=== PATIENT | male | born 1955 | race Two or more races ===

== ENCOUNTER 2017-11-02 09:02 | Inpatient (IN) | payer OTHER ==
[2017-10-28 17:56] LABS: BASOPHILS % (AUTO) 0.6 % (0.0-2.0); HEMATOCRIT 47.4 % (42.0-52.0); HEMOGLOBIN 16.4 G/DL (14.2-18.0); MEAN CORPUSCULAR VOLUME 94 FL (80-99); MONOCYTES % (AUTO) 7.7 % (1.0-10.0); NEUTROPHILS % (AUTO) 60.7 % (45.0-75.0); PLATELET COUNT 231 K/UL (150-450); RED BLOOD COUNT 5.03 M/UL (4.70-6.10); RED CELL DISTRIBUTION WIDTH 11.6 % (11.6-14.8); WHITE BLOOD COUNT 9.2 K/UL (4.8-10.8)
[2017-10-28 18:17] LABS: ALANINE AMINOTRANSFERASE 34 U/L (12-78); ALBUMIN 3.9 G/DL (3.4-5.0); ALKALINE PHOSPHATASE 74 U/L (46-116); ANION GAP 12 mmol/L (5-15); APPEARANCE,URINE CLEAR; ASPARTATE AMINO TRANSFERASE 23 U/L (15-37); BILIRUBIN, URINE NEGATIVE (NEGATIVE); BILIRUBIN,TOTAL 0.6 MG/DL (0.2-1.0); BLOOD UREA NITROGEN 11 mg/dL (7-18); CALCIUM 9.5 MG/DL (8.5-10.1); CARBON DIOXIDE 28 MMOL/L (21-32); CHLORIDE 103 MMOL/L (98-107); CREATININE 0.7 MG/DL (0.55-1.30); GLUCOSE, URINE (UA) NEGATIVE (NEGATIVE); KETONES,URINE 3+ (NEGATIVE); LEUKOCYTE ESTERASE ,URINE NEGATIVE (NEGATIVE); NITRITE,URINE NEGATIVE (NEGATIVE); PH,URINE 6 (4.5-8.0); PHOSPHORUS 3.4 MG/DL (2.5-4.9); POTASSIUM 3.3 MMOL/L (3.5-5.1); PROTEIN,URINE NEGATIVE (NEGATIVE); SODIUM 143 MMOL/L (136-145); UROBILINOGEN,URINE NORMAL MG/DL (0.0-1.0)
[2017-10-28 18:18] LABS: COLOR,URINE YELLOW
--- NOTE | 2017-10-29 14:17 | Diagnostic Imaging Report ---
Indication: Cough Comparison: None 2 views of the chest obtained. Mid and lower thoracic upper lumbar spinal stabilization rods demonstrated. Lungs are clear. Heart size is normal. Bones are osteopenic. IMPRESSION: No acute disease
[~2017-11-02] VITALS: Ht 160 cm; Wt 77.1 kg
[2017-11-02] VITALS (14 sets, daily range): BP systolic 110–142; BP diastolic 62–85
[~2017-11-02 09:02] MED LIST: NKM; ceFAZolin sod 2 GM in D5W 110 ML IVPB ONE
[2017-11-02] MEDS ORDERED: CODEINE PO (09:55)
[2017-11-02] MEDS ORDERED: OMEPRAZOLE20 M2 ORAL (09:55)
[2017-11-02] MEDS ORDERED: ALPRAZOLAM1 MG ORAL (09:55)
[2017-11-02] MEDS ORDERED: IBUPROFEN PO (09:55)
[2017-11-02] MEDS ORDERED: LUNESTA1 MG ORAL (09:55)
[2017-11-02] MEDS ORDERED: ACETAMINOPHEN-1 EAC2 ORAL (09:56)
--- NOTE | 2017-11-02 11:05 | Pre-Procedure Note/Attestation ---
Pre-Procedure Note/Attestation Complete Prior to Procedure Procedure Narrative: [id number] laminoplasty, c2 and c7 partial laminectomy Indications for Procedure Pre-Operative Diagnosis: cervical stenosis with myelopathy Attestation I attest that I discussed the nature of the procedure; its benefits; risks and complications; and alternatives (and the risks and benefits of such alternatives ), prior to the procedure, with the patient (or the patient's legal customer development representative). I attest that, if there was a reasonable possibility of needing a blood transfusion, the patient (or the patient's legal customer development representative) was given the [facility] standardized written summary, pursuant to the Cade Andrew Blood Safety Act ([place] Health and Safety Code # 1645, as amended). I attest that I re-evaluated the patient just prior to the surgery and that there has been no change in the patient's H&P, except as documented below: CISCO HOWELL Nov 02, 2017 11:05
--- NOTE | 2017-11-02 11:06 | Brief Operative Note ---
Immediate Post Operative Note Operative Note Pre-op Diagnosis: cervical stenosis with myelopathy Procedure: c3-6 laminoplasty, C2 and C7 partial laminectomy laminoforaminotomy Right C34, 45, 56, and B c67 Post-op Diagnosis: same as pre-op Findings: consistent w/pre-op dx studies Surgeon: america Wash Barrel Leader: stephen SEAY Anesthesiologist: neyda Anesthesia: general Specimen: none Complications: none Condition: stable Fluids: 1400 lr Estimated Blood Loss: volume - 100 Drains: hemovac Implant(s) used?: Yes - aesculap laminoplasty 8mm x 2 and 6 mm x 2 CISCO HOWELL Nov 02, 2017 11:06
[2017-11-02] MEDS ORDERED: Bacitracin Oint 15gm Tube TOPIC ONE (11:29)
[2017-11-02] MEDS ORDERED: Thrombin 5000 units TOPIC ONE ×2 (11:29→13:51)
[2017-11-02] MEDS ORDERED: Lidocaine 1% 10mg/ml/Epi 0.005mg/ml 30ml vial INJ ONE (11:30)
[2017-11-02] MEDS ORDERED: Thrombin 5000 units spray kit TOPIC ONE ×2 (11:30→13:52)
[2017-11-02] MEDS ORDERED: Gelfoam Absorbable 1gm powder pkt TOPIC ONE ×2 (11:30→13:52)
[2017-11-02] MEDS ORDERED: Bacitracin 50000 Units Vial ONE (11:30)
[2017-11-02] MEDS ORDERED: Vancomycin 1gm inj IVPB ONE (11:30)
[2017-11-02] MEDS ORDERED: Sterile Water Irrig 1000ml IRRIG ONE (12:00)
[2017-11-02] MEDS ORDERED: Neostigmine 1mg/ml 10ml Inj ONE (12:00)
[2017-11-02] MEDS ORDERED: Glycopyrrolate 0.2mg/ml 1ml Vial ONE (12:00)
[2017-11-02] MEDS ORDERED: Propofol 200mg/20ml IV ONE (12:00)
[2017-11-02] MEDS ORDERED: Zemuron 50mg/5ml Inj IV ONE (12:00)
[2017-11-02] MEDS ORDERED: Succinylcholine 20mg/ml 10ml vial ONE (12:00)
[2017-11-02] MEDS ORDERED: Midazolam 2mg/2ml Inj ONE ×2 (12:00)
[2017-11-02] MEDS ORDERED: LR 1000ml ONE (12:00)
[2017-11-02] MEDS ORDERED: Propofol 1,000mg/ 100ml btl IV ONE (12:00)
[2017-11-02] MEDS ORDERED: Ketorolac 30mg Inj ONE (12:00)
[2017-11-02] MEDS ORDERED: NS Irrig 1000ml ONE (12:00)
[2017-11-02] MEDS ORDERED: Morphine Sulfate 10mg/ml Inj ONE (12:00)
[2017-11-02] MEDS ORDERED: fentaNYL 100 mcg/2 mL IV ONE (12:00)
[2017-11-02] MEDS ORDERED: LR 1000ml 1,000 ML IVLG SCH (13:49)
--- NOTE | 2017-11-02 13:49 | Anethesia Preoperative Eval ---
Anesthesia Pre-op PMH/ROS General Date of Evaluation: Nov 02, 2017 Time of Evaluation: 12:02 Anesthesiologist: Riri ASA Score: ASA 2 Mallampati Score Class I : Soft palate, uvula, fauces, pillars visible Class II: Soft palate, uvula, fauces visible Class III: Soft palate, base of uvula visible Class IV: Only hard plate visible Mallampati Classification: Class II Surgeon: Nohelia Diagnosis: Cervical radiculopathy Surgical Procedure: C3 to C6 laminotomy with decompression Anesthesia History: none Family History: no anesthesia problems Allergies: Coded Allergies: No Known Allergies (Unverified , 10/29/17) Past Medical History Cardiovascular: Denies: HTN, CAD, [place], valve dz, arrhythmia, other Pulmonary: Denies: asthma, COPD, WANDY, other Gastrointestinal/Genitourinary: Reports: GERD, Denies: CRI, ESRD, other Neurologic/Psychiatric: Reports: depression/anxiety, other - chronic pain Endocrine: Denies: DM, hypothyroidism, steroids, other HEENT: Denies: cataract (L), cataract (R), glaucoma, [place] (L), [place] (R), other Hematology/Immune: Denies: anemia, DVT, bleeding disorder, other Musculoskeletal/Integumentary: Denies: OA, RA, DJD, DDD, edema, other PMH Narrative: as above PSxH Narrative: hernia repair , Lumbar spine fusion Anesthesia Pre-op Phys. Exam Physician Exam Last Vital Signs Date Time Temp Pulse Resp B/P (MAP) Pulse Ox O2 Delivery O2 Flow Rate FiO2 11/02/17 09:40 97.8 62 18 142/73 99 Room Air Constitutional: NAD Neurologic: CN 2-12 intact Cardiovascular: RRR, no M/R/G Respiratory: CTA Gastrointestinal: S/NT/ND Airway Exam Mallampati Score: Class II MO: limited Neck: stiff ROM: limited Teeth: missing Dentures: no upper, no lower Anesthesia Pre-op A/P Labs see chart Studies Pre-op Studies: EKG - NSR, CXR - WNL Risk Assessment & Plan Assessment: ASA 2 Plan: GA with ett prone position head in pings, neuromonitoring Status Change Before Surgery: No Pre-Antibiotics Drug: Ancef 2 gr. Given Within 1 Hr of Incision: Yes Time Given: 12:52 RAYMOND ALVARADO M.D. Nov 02, 2017 13:49
[2017-11-02] MEDS ORDERED: Midazolam 2mg/2ml Inj IVP PRN (14:00)
[2017-11-02] MEDS ORDERED: Hydromorphone 0.5mg/0.5ml inj IVP PRN (14:00)
[2017-11-02] MEDS ORDERED: Meperidine 50mg/ml Inj(FOR RIGORS ONLY) IV PRN (14:00)
[2017-11-02] MEDS ORDERED: DiphenhydrAMINE 50mg/ml Inj IVP PRN (14:00)
[2017-11-02] MEDS ORDERED: Ketorolac 30mg Inj IV PRN (14:00)
[2017-11-02] MEDS ORDERED: Bacitracin 50000 Units Vial IRRIG ONE (15:41)
[2017-11-02] MEDS ORDERED: Norco 5mg/325mg tab ORAL PRN (16:15)
[2017-11-02] MEDS ORDERED: traMADol 50mg tab ORAL PRN (16:15)
[2017-11-02] MEDS ORDERED: Naloxone 0.4mg/ml Inj IVP PRN (16:15)
[2017-11-02] MEDS ORDERED: HYDROmorphone 1mg/ml Carpuject IVP PRN (16:15)
[2017-11-02] MEDS ORDERED: HYDROmorphone 1mg/ml Carpuject SUBQ PRN (16:15)
[2017-11-02] MEDS ORDERED: Milk of Magnesia 30ml Ud ORAL PRN (16:15)
--- NOTE | 2017-11-02 17:09 | Immediate Post-Op Evaluation ---
Immediate Post-Op Evalulation Immediate Post-Op Evalulation Procedure: C3 to C6 decompressive laminoplasty Date of Evaluation: Nov 02, 2017 Time of Evaluation: 17:08 IV Fluids: 1600 Blood Products: none Estimated Blood Loss: 100 Urinary Output: 200 Blood Pressure Systolic: 114 Blood Pressure Diastolic: 67 Pulse Rate: 94 Respiratory Rate: 20 O2 Sat by Pulse Oximetry: 99 Temperature (Fahrenheit): 97.8 Pain Score (1-10): 2 Nausea: No Vomiting: No Complications none Patient Status: reacts, patent, extubated, none Hydration Status: adequate RAYMOND ALVARADO M.D. Nov 02, 2017 17:09
[2017-11-02] MEDS ORDERED: ceFAZolin sod 1 GM in D5W 55 ML IV SCH (20:15)
[2017-11-02] MEDS: ceFAZolin 1gm/50ml Premix 50 ML IV SCH (21:10)
[2017-11-02] MEDS: D5 1/2NS 1,000 ML IV SCH (21:13)
[2017-11-02] MEDS: Docusate Sod/Senna tab ORAL SCH (22:00)
[2017-11-03] VITALS: BP 135/73
[2017-11-03] MEDS: HYDROcodone/Acetamin 7.5/325 tab ORAL PRN ×3 (00:49→20:24)
[2017-11-03 04:00] VITALS: BP 110/61
--- NOTE | 2017-11-03 04:15 | Operative Note - Dictated ---
DATE OF OPERATION: 11/02/2017 PREOPERATIVE DIAGNOSIS: Cervical spinal stenosis with myeloradiculopathy. POSTOPERATIVE DIAGNOSIS: Cervical spinal stenosis with myeloradiculopathy. PROCEDURE: 1. Inferior one-half laminectomy of C2 and superior one-half laminectomy of C7. 2. Right-sided laminal foraminotomy with decompression of nerve roots at C3-C4, C4-C5, C5-C6, as well as bilateral C6-C7. 3. Laminoplasty C3, C4, C5, C6 with placement of structural allograft. 4. Posterior segmental instrumentation C3, C4, C5, C6. 5. Use of fluoroscopy. 6. Neurodiagnostic monitoring. 7. Use of operating microscope. ESTIMATED BLOOD LOSS: 150 mL. FLUIDS GIVEN: 1400 mL of LR. SURGEON: Nelson Pozo M.D. FLOOR SANDER: Gregory Richardson PA-C. ANESTHESIOLOGIST: Sheldon Menezes M.D. ANESTHESIA TYPE: General endotracheal anesthesia. INDICATION: The patient is a very pleasant 62-year-old with severe spinal stenosis at multiple levels, C2 inferior half through C7 superior half with early signs of myelomalacia and cord edema. Surgical decompression was recommended. I did discuss with the patient the option of multilevel decompression and fusion versus multilevel decompression versus multilevel laminoplasty. He elected the laminoplasty solution. RISK NOTE: The patient was explained in detail the risks and benefits of surgery to include, but not be limited to those of bleeding, infection, damage to nerves, vessels, tendons, anesthetic risk, allergic reaction, aspiration and possibly , possible need for additional surgical decompression, primarily through an anterior approach was discussed. INTRAOPERATIVE FINDINGS: Hypermobile segment at C3. OPERATIVE PROCEDURE IN DETAIL: The patient was taken to the operative suite. After general endotracheal anesthesia was obtained, Díaz catheter was placed. Pryor pins were attached under sterile condition. The patient was then turned prone onto a radiolucent slider top table and head was firmly attached to the Pryor attachment. The knees were bent. Bony prominences were well padded. The neck was prepped and draped in usual sterile fashion. The patient received 10 mL of lidocaine with epinephrine. A midline incision was carried out from C2 through C7. Subperiosteal dissection was carried out. Care being taken to avoid injury to the facet joints. At this point, the left side was first visualized and hemilaminectomy of C2 was performed. This was performed using a high-speed drill, Microsect curette, and micro-Kerrison punches. Once satisfied with the decompression at C2, this was then performed along the superior one-half of C7. At this point, I did a partial osteotomy and scoring of the superficial portion of the lamina along the lateral gutter of C3, C4, C5, and C6. FloSeal was applied and this area was packed off. Please note that prior to performing any bony work, fluoroscopic confirmation of the levels was achieved. At this point, the attention was turned to the right side. We proceeded to perform similarly a hemilaminectomy on the right side at C2. This was done in an identical fashion as performed on the left. Then, I performed a laminal foraminotomy by removing inferior portion of C3 and superior portion of C4 as well as partial medial facetectomy. The neural foramen was free and noted to be patent. This was performed in an identical fashion using a high-speed drill, Microsect curette, and micro-Kerrison punches. This was then reproduced at the C4-C5 and C5-C6 level as well as C6-C7 level on the right side. Hemilaminectomy at C7 was also performed. Once satisfied with this, a complete osteotomy along the lateral edge using an AM-8 high-speed drill was performed. This was performed at C3, C4, C5, and C6. At this point, laminoplasty maneuver was performed on the C3 level, however, we could not mobilize this as the C2 and C3 ligamentum pressure interspinous ligament as well as the undersurface of the lamina of C2 had auto fused to C3. Therefore, I was forced to perform an osteotomy and removal of the spinous process and interspinous ligament at C2. Then with a high-speed drill, the pseudoarticulation between C2-C3 was drilled out and completion of the inferior one-half laminectomy of C2 was performed. This allowed us to open up the right side at C3 and an 8 mm bone graft was trialed and noted to be the right length. It was then attached to the Aescula laminoplasty set and a 4 millimeter screw was drilled into the lamina as well as a 6 millimeter screw was drilled into the lateral mass. This was then reproduced at the C4 level, C5 level, and subsequently C6 level. The bone graft at C3 was 8 millimeters, at C4 was 6 millimeters, at C5 was 8 millimeters, and at C6 was 6 millimeters. Please note that all screws were readily placed. The bottom two levels at C6 and C5 was concerning for overpenetration into the facet joint of the 6 millimeter lateral mass screw, which was subsequently removed. Excellent overall fixation, however, was palpated at all four levels. Once satisfied with fixation, all levels were tested and there was noted to be hypermobility at the C3 level. Copious irrigation was then performed. A 1 g of powdered vancomycin was placed deep to the fascia. Fascia was repaired using #1 Vicryl. Deep fascial drain was placed, subcutaneous closure using 2-0 Vicryl, and sterile Dermabond dressing was applied. The patient was then turned onto his back. Pryor pins were removed and at time of this dictation, he was awaiting extubation. Nelson Niesha Pozo DR: BENITA JOB#: [id number] CC:
[2017-11-03] MEDS: ceFAZolin 1gm/50ml Premix 50 ML IV SCH (04:23)
[2017-11-03] MEDS: D5 1/2NS 1,000 ML IV SCH ×3 (04:24→17:30)
[2017-11-03] MEDS ORDERED: Acetaminophen (Non formulary) 100 ML IV ONE (07:45)
[2017-11-03 08:07] VITALS: BP 114/59
[2017-11-03] MEDS: Docusate Sod/Senna tab ORAL SCH ×2 (08:38→17:32)
[2017-11-03 09:21] LABS: BASOPHILS % (AUTO) 0.4 % (0.0-2.0); EOSINOPHILS % (AUTO) 0.3 % (0.0-3.0); HEMATOCRIT 40.6 % (42.0-52.0); HEMOGLOBIN 13.7 G/DL (14.2-18.0); LYMPHOCYTES % (AUTO) 14.5 % (20.0-45.0); MEAN CORPUSCULAR VOLUME 95 FL (80-99); MONOCYTES % (AUTO) 7.9 % (1.0-10.0); NEUTROPHILS % (AUTO) 76.9 % (45.0-75.0); PLATELET COUNT 192 K/UL (150-450); RED BLOOD COUNT 4.28 M/UL (4.70-6.10); RED CELL DISTRIBUTION WIDTH 11.8 % (11.6-14.8); WHITE BLOOD COUNT 8.1 K/UL (4.8-10.8)
--- NOTE | 2017-11-03 09:27 | Orthopedic Spine Progress Note ---
Ortho Spine - Progress Note Subjective Symptoms: c/o post-op neck pain Objective Vital Signs: Last 24 Hour Vital Signs Date Time Temp Pulse Resp B/P (MAP) Pulse Ox O2 Delivery O2 Flow Rate FiO2 11/03/17 09:02 98.2 11/03/17 08:14 98.2 11/03/17 08:07 98.2 56 20 114/59 98 11/03/17 04:00 98.1 62 18 110/61 99 11/03/17 00:00 97.5 86 19 135/73 98 11/02/17 20:00 97.2 69 18 120/76 99 11/02/17 19:22 97.2 92 20 132/71 99 Nasal Cannula 3.0 11/02/17 19:05 98 20 142/83 99 Nasal Cannula 3.0 11/02/17 18:49 98 20 121/85 99 Nasal Cannula 3.0 11/02/17 18:30 80 20 110/62 99 Simple Mask 8.0 11/02/17 18:15 91 20 114/69 99 Simple Mask 8.0 11/02/17 18:01 76 20 128/78 99 Simple Mask 8.0 11/02/17 17:45 76 20 128/78 99 Simple Mask 8.0 11/02/17 17:30 87 20 127/74 99 Simple Mask 8.0 11/02/17 17:15 96 20 116/71 99 Simple Mask 8.0 11/02/17 17:12 99 20 130/67 99 Simple Mask 8.0 11/02/17 17:09 94 20 99 11/02/17 17:07 99 20 116/71 99 Simple Mask 8.0 11/02/17 17:02 97.0 99 20 117/68 99 Simple Mask 8.0 11/02/17 09:40 97.8 62 18 142/73 99 Room Air I&O: Intake and Output 11/02/17 11/03/17 19:00 07:00 Intake Total 1600 ml 1520 ml Output Total 300 ml 216 ml Balance 1300 ml 1304 ml Intake Oral 220 ml IV Total 1600 ml 1300 ml Output Urine Total 200 ml 101 ml Drainage Total 115 ml Estimated Blood Loss 100 ml # Voids 1 101 Wound: clean, intact Drains: hemovac Neuro Status: unchanged from pre-op - but with mild sensory improvement B hands. Legs unchanged Assessment Procedure Performed: c3-6 laminoplasty, C2 and C7 partial laminectomy laminoforaminotomy Right C34, 45, 56, and B c67 Plan Plan: PT, pain management, continue drain CISCO HOWELL Nov 03, 2017 09:27
--- NOTE | 2017-11-03 09:32 | 48 Hour Post Anesthesia Eval ---
Post Anesthesia Evaluation Procedure: C3 to C6 decompressive laminoplasty Date of Evaluation: Nov 03, 2017 Time of Evaluation: 06:24 Blood Pressure Systolic: 110 0: 61 Pulse Rate: 56 Respiratory Rate: 20 Temperature (Fahrenheit): 98.2 O2 Sat by Pulse Oximetry: 99 Airway: patent Nausea: No Vomiting: No Pain Intensity: 3 Hydration Status: adequate Cardiopulmonary Status: Stable Mental Status/LOC: patient returned to baseline Follow-up Care/Observations: 0 Post-Anesthesia Complications: 0 Follow-up care needed: N/A Hosea Kilgore MD Nov 03, 2017 09:32
[2017-11-03] MEDS ORDERED: Chloraseptic Spray 20mL Bottle ORAL STA (10:55)
[2017-11-03] MEDS ORDERED: HYDROmorphone 1mg/ml Carpuject SUBQ PRN (11:00)
[2017-11-03] MEDS ORDERED: Chloraseptic Spray 20mL Bottle ORAL PRN (11:00)
[2017-11-03] MEDS ORDERED: ALPRAZolam 0.5mg tab ORAL PRN (11:15)
[2017-11-03 11:49] VITALS: BP 129/76
[2017-11-03] MEDS: ceFAZolin sod 1 GM in NS 55 ML IVP SCH ×2 (12:21→20:23)
--- NOTE | 2017-11-03 15:06 | Diagnostic Imaging Report ---
Indication: Pain, intraoperative Technique: Intraoperative images Comparison: none Findings: Intraoperative images document surgical changes of the posterior elements of C3-C6 Impression: Intraoperative imaging, as described
[2017-11-03 16:01] VITALS: BP 117/61
--- NOTE | 2017-11-03 16:45 | Consultation ---
DATE OF CONSULTATION: 11/03/2017 CONSULTING PHYSICIAN: Rodriguez Mota M.D. REFERRING PHYSICIAN: Nelson Pozo M.D. REASON FOR CONSULTATION: Acute pain management. HISTORY OF PRESENT ILLNESS: Dear Dr. Nelson Pozo: Thank you kindly for consulting me to evaluate and render an opinion as to how to proceed in the management of the patient's acute postoperative cervical spine pain status post multiple level posterior cervical spine surgery yesterday. The patient is a pleasant 62-year-old gentleman, who I saw at the bedside on your request. The patient underwent multiple level posterior cervical spine surgery and complains of significant discomfort postoperatively. I saw the patient the bedside with yourself, Dr. Pozo. I performed a detailed history and physical examination. I spent over 75 minutes in consultation with an additional 30 minutes in medical record review. I reviewed multiple records from yesterday's date of surgery at [facility] including consent for surgical treatment, consent for anesthesia, consent for blood products, postoperative spine surgery and postoperative spine surgery orders by Dr. Pozo, anesthesia record, pre and post anesthesia evaluation record, PACU record, PACU orders, intraoperative nursing record, guidelines for DVT prophylaxis, guidelines for antibiotics for prophylaxis. Further records reviewed include preoperative history and physical by Dr. Palacio on October 28, 2017 including laboratory studies, 12-lead EKG, and chest x-ray. Further records reviewed include utilization review and surgical authorization by [employer] worker's compensation October 06, 2017 authorizing surgery and hospital stay as certified. I spoke with the hospital pharmacist along with the orthopedic floor nurse RN, Yana. PAST MEDICAL HISTORY: 1. Acute postoperative cervical spine pain status post multiple level posterior cervical spine surgery by Dr. Nelson Pozo November 02, 2017. 2. Work-related injury. 3. Depression. 4. Obesity. 5. Bilateral knee pain. 6. Bilateral shoulder pain. 7. Chronic neck pain. PAST SURGICAL HISTORY: 1. Thoracic spine surgery in 1985. 2. Left hernia repair 2014. ALLERGIES: No known drug allergies. MEDICATIONS: At home NSAIDs, Lunesta, Tylenol No. 4 with Codeine, Xanax 1 mg, per the patient's psychiatrist outpatient. SOCIAL HISTORY: The patient denies tobacco usage. 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 Denies tobacco usage. REVIEW OF SYSTEMS: Per Dr. Palacio. PHYSICAL EXAMINATION: VITAL SIGNS: Age 62. Height 5 feet and 3 inches. Weight 77 kilogram. Body mass index 36. Afebrile. Pain level 6/10 on the visual analog pain scale. Pulse 56, respirations 20, blood pressure 114/59, oxygen saturation 99%. HEENT: [place] collar in place. Hemovac drain holding suction with overnight high output of 115 mL. The patient is sitting in a chair and has been able to ambulate to the restroom. Moving all extremities x4. NEUROLOGIC: A detailed neurologic exam per Dr. Pozo. CHEST: Clear to auscultation. ABDOMEN: Mildly obese. Positive bowel sounds. CARDIOPULMONARY: Detailed cardiopulmonary exam per Dr. Palacio. GENITOURINARY: Deferred. LABORATORY STUDIES: On November 03, 2017 white count 8, hematocrit 41, platelets 192. Sodium 143, potassium 3.3, chloride 103, bicarb 28, BUN 11, creatinine 0.7, glucose 83. Calcium 9.5. Phosphorus 3.4. Magnesium 1.8. Total bilirubin 0.6, AST 23, ALT 34, alkaline phosphatase 74. Total protein 7.8 and albumin 3.9. INR 1.0 and PTT 27. A 12-lead EKG shows left axis deviation, sinus bradycardia, no evidence for acute cardiac ischemia. Preoperative chest x-ray on October 28, 2017 shows no acute cardiopulmonary disease. IMPRESSION: 1. Acute postoperative cervical spine pain status post multiple level posterior cervical spine surgery by Dr. Nelson Pozo November 02, 2017. 2. Work-related injury. 3. Depression. 4. Obesity. 5. Bilateral knee pain. 6. Bilateral shoulder pain. 7. Chronic neck pain. TREATMENT RECOMMENDATIONS: I have devised the following analgesic plan to help with the patient's pain control. I spoke with the hospital pharmacist. I have streamlined his medication list to reduce the risk of medication administration errors. The patient sees an outpatient psychiatrist for which he is prescribed oral Xanax for severe anxiety and depression. I will restart Xanax at home dose but I will increase the frequency has anxiety may worsen after recent surgery. I have made available Dilaudid 1 mg subcutaneously every three hours p.r.n. for severe pain episodes. He will be on hydrocodone 7.5 mg tablets 1 to 2 tablets p.r.n. every three hours depending on mild to moderate pain respectively. I have asked the nurse to place Chloraseptic spray bottle at the bedside to help with topical sore throat complaints. The patient should continue Benadryl for itching complaints. I have ordered incentive spirometer to encourage good pulmonary toilet. For DVT prophylaxis, the patient should ambulate as much as he can frequently. Zofran is available as a rescue antiemetic. I have ordered Protonix for GI ulcer prophylaxis agents. I have also ordered Mylanta 30 mL q.6 hours in case of any GERD symptom exacerbation. For outpatient usage, I have left prescriptions for [place] 10/325, 60 tablets along with Xanax 1 mg tablets, quantity of 30. The patient will obtain medication refills through his outpatient physicians. Rodriguez Mota M.D. DR: Rojas JOB#: [id number] CC:
[2017-11-03 20:00] VITALS: BP 140/55
[2017-11-04 00:41] VITALS: BP 119/59
[2017-11-04] MEDS: ceFAZolin sod 1 GM in NS 55 ML IVP SCH ×2 (04:02→12:33)
[2017-11-04 04:36] VITALS: BP 123/69
[2017-11-04 08:00] VITALS: BP 150/72
[2017-11-04] MEDS: Docusate Sod/Senna tab ORAL SCH ×2 (08:39→18:12)
--- NOTE | 2017-11-04 08:56 | Orthopedic Spine Progress Note ---
Ortho Spine - Progress Note Subjective Symptoms: c/o post-op neck pain, improved - as compared to pre-op Objective Vital Signs: Last 24 Hour Vital Signs Date Time Temp Pulse Resp B/P (MAP) Pulse Ox O2 Delivery O2 Flow Rate FiO2 11/04/17 04:37 Room Air 11/04/17 04:36 97.8 60 17 123/69 95 11/04/17 00:42 Room Air 11/04/17 00:41 98.1 64 17 119/59 96 11/03/17 20:01 Room Air 11/03/17 20:00 98.2 60 18 140/55 96 11/03/17 16:01 97 Room Air 11/03/17 16:01 97.7 59 20 117/61 97 11/03/17 11:49 97.3 64 20 129/76 95 11/03/17 11:49 95 Room Air 11/03/17 09:32 56 20 99 11/03/17 09:13 98.2 11/03/17 09:02 98.2 I&O: Intake and Output 11/03/17 11/04/17 19:00 07:00 Intake Total 1855 ml 1010 ml Output Total 230 ml 690 ml Balance 1625 ml 320 ml Intake Oral 900 ml IV Total 955 ml 1010 ml Output Urine Total 150 ml 650 ml Drainage Total 80 ml 40 ml # Voids 1 1 Wound: clean, intact Drains: hemovac Additional Comments: mild improvement BUE, but BLE unchanged Assessment Procedure Performed: c3-6 laminoplasty, C2 and C7 partial laminectomy laminoforaminotomy Right C34, 45, 56, and B c67 Plan Plan: PT, pain management, continue drain, discharge plan CISCO HOWELL Nov 04, 2017 08:56
[2017-11-04] MEDS: D5 1/2NS 1,000 ML IV SCH ×3 (11:19→22:32)
[2017-11-04 12:00] VITALS: BP 125/77
[2017-11-04 16:00] VITALS: BP 142/85
[2017-11-04] MEDS: HYDROcodone/Acetamin 7.5/325 tab ORAL PRN (20:28)
[2017-11-04 20:43] VITALS: BP 150/74
--- NOTE | 2017-11-04 20:45 | Progress Note ---
DATE: 11/04/2017 ACUTE PAIN MANAGEMENT PHYSICIAN PROGRESS NOTE MEDICATIONS: Medication administration record reviewed. Medications include Restoril, America-Colace, Chloraseptic spray, Protonix, Zofran, Narcan, milk of magnesia, Dilaudid, [place], Benadryl, Xanax, Mylanta and Tylenol. LABORATORY STUDIES: Yesterday, 11/03/2017 shows white count 8, hematocrit 41 and platelets 192. Vital signs, afebrile, pulse 66, respirations 19, blood pressure 125/77 and oxygen saturation 98%. I saw the patient at the bedside with the nurse RN, Marbin. I discussed the case with the charge nurse, RN, Hardy, along with the surgeon, Dr. Nelson Pozo. Dr. Pozo referred that the patient 01:13 hospital for over 24 hours for monitoring and the patient was agreeable to the plan. I saw the patient with physical therapist, Miller, who has been ambulating the patient well in the hallways. The patient is breathing, swallowing, and phonating within normal limits. The patient has been using his hydrocodone with good analgesic effect. I did leave a prescription for outpatient usage. The patient is compliant using his incentive spirometer. The patient's is at the bedside providing good social support. The patient has advanced his diet well. The patient denies any shortness of breath or chest pain. The patient was seated on the edge of the bed. Overnight, the output from the indwelling posterior cervical spine drain catheter was 30 mL. I removed the [place] collar to examine the posterior cervical spine wound. The incision was clean and dry with DuraBond sealant intact. There was no evidence for erythema or exudate. The drain hole site was clean and dry. I removed the tape holding in the indwelling cervical spine drain catheter. An end-expiration, with the Hemovac drain taken off of suction. I personally removed the indwelling cervical spine drain catheter. The tip was intact. Alcohol swab was applied to the drain hole site along with the incision area. Sterile island isolated border gauze dressing was then applied after generous swabbing with alcohol pads. There were no complications. [place] collar was replaced without incident and the patient was breathing comfortably. Rodriguez Mota M.D. DR: NIKKIE JOB#: [id number] CC:
[2017-11-05 00:52] VITALS: BP 140/61
[2017-11-05 04:00] VITALS: BP 146/90
[2017-11-05 08:00] VITALS: BP 131/70
[2017-11-05] MEDS: Docusate Sod/Senna tab ORAL SCH (08:41)
[2017-11-05] MEDS: D5 1/2NS 1,000 ML IV SCH (08:42)
[2017-11-05] MEDS ORDERED: XANAX1 MG ORAL (09:47)
[2017-11-05] MEDS ORDERED: NORCO 10-325 T1 EACH ORAL (09:49)
[2017-11-05] MEDS ORDERED: Tubing IV Secondary IV ONE (11:44)
[2017-11-05] MEDS ORDERED: D5 1/2NS 1000ml IV ONE ×2 (11:44)
--- NOTE | 2017-11-05 19:30 | Progress Note ---
DATE: 11/05/2017 ACUTE PAIN MANAGEMENT PHYSICIAN PROGRESS NOTE MEDICATIONS: Medication administration record reviewed. Medications include Tylenol, Mylanta, Xanax, Benadryl, [place], Dilaudid, milk of magnesia, Narcan, Zofran, Protonix, Chloraseptic, America-Colace, and Restoril. LABORATORY STUDIES: No interval laboratory studies. OBJECTIVE: VITAL SIGNS: Within normal limits. Afebrile, pulse 77, respirations 17, blood pressure 131/70, and oxygen saturation 97% on room air. Pain level is 4/10 on the visual analog pain scale. I saw the patient at the bedside with the nurse TOM Kent. I discussed the case with the surgeon, Dr. Pozo. The patient continues to do very well. He has been increasing his diet without difficulty. After his neck surgery, he is swallowing, breathing, and phonating within normal limits. He continues to be very compliant using his [place] collar. 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 The patient is in good spirits and is alert and oriented x3. Neck dressing is clean and dry. The patient is voiding urine well. Denies shortness of breath or chest pain. The patient feels comfortable to trial of discharge home if the surgeon permits. The patient is ambulating well with normal vital signs, I left a prescription for [place] and Xanax for home usage. The patient's anxiety seems to be well controlled at this time. I see no contraindication for discharge trial home if the surgeon agrees. The patient will follow up with Dr. Pozo in the outpatient surgical clinic later this month for surgical followup. Rodriguez Mota M.D. DR: ELSA JOB#: [id number] CC:
--- NOTE | 2017-11-08 11:03 | Discharge Summary ---
Discharge Summary Hospital Course Date of Admission Nov 02, 2017 at 09:02 Date of Discharge Nov 05, 2017 at 11:45 Admitting Diagnosis Cervical spinal stenosis with myeloradiculopathy. Reason for Hospitalization: elective surgery HPI Daniel Noonan is a 62 year old male who was admitted on Nov 02, 2017 at 09:02 for Cervical spinal stenosis with myeloradiculopathy. Patietn was admitted for elective surgery Consultations dr Mota -pain business information consultant Procedures s/p 11/02/[address] Pozo 1. Inferior one-half laminectomy of C2 and superior one-half laminectomy of C7. 2. Right-sided laminal foraminotomy with decompression of nerve roots at C3-C4, C4-C5, C5-C6, as well as bilateral C6-C7. 3. Laminoplasty C3, C4, C5, C6 with placement of structural allograft. 4. Posterior segmental instrumentation C3, C4, C5, C6. 5. Use of fluoroscopy. 6. Neurodiagnostic monitoring. 7. Use of operating microscope. 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 s/p 11/02 -C3-6 laminoplasty, C2 and C7 partial laminectomy, laminoforaminotomy, right C34, C45, C56, and bilateral C67 obesity depression bilateral knee pain bilateral shoulder pain chronic neck pain Discharge Medications Continued Medications: Alprazolam* (Xanax*) 1 Mg Tablet 1 TAB ORAL DAILY PRN for For Anxiety, #30 TAB 0 Refills Hydrocodone Bit/Acetaminophen 10-325* ([place] 10-325*) 1 Each Tablet 1 TAB ORAL Q4H PRN for For Pain, #60 TAB 0 Refills PRN PAIN Discontinued Medications: Acetaminophen With Codeine (T#4) (Tylenol #4 Tab*) Y Tab 1 TAB ORAL Q6H PRN for For Pain, TAB 0 Refills Alprazolam* (Xanax*) 1 Mg Tablet Unknown Dose ORAL DAILY, TAB Eszopiclone (Lunesta) 1 Mg Tablet Unknown Dose ORAL BEDTIME PRN for Insomnia, TAB 0 Refills Omeprazole (Omeprazole) 20 Mg Capsule.dr Unknown Dose ORAL DAILY, CAP Discharge Condition Upon Discharge: stable Discharge Disposition Patient was discharged to Home (01) Discharge Diagnoses: Discharge Instructions Discharge Instructions Special Instructions I have been assigned to complete a D/C Summary on this account. I was not involved in the patient management Tonya Whiteside NP ([place]) Nov 08, 2017 11:03
== END 2017-11-05 11:45 | disposition home or self-care (01) | DRG 518 ==
LOC: SDSOVERFLO 09:02 → EDSTATUS 09:45 → 3E 16:12
PROC: 01N10ZZ Release Cervical Nerve, Open Approach (ICD-10-PCS; principal; 2017-11-02 12:00)
PROC: 00NW0ZZ Release Cervical Spinal Cord, Open Approach (ICD-10-PCS; principal; 2017-11-02 12:00)
PROC: 0PH304Z Insertion of Internal Fixation Device into Cervical Vertebra, Open Approach (ICD-10-PCS; principal; 2017-11-02 12:00)
DX: M48.02 Spinal stenosis, cervical region (principal); G95.19 Other vascular myelopathies; G95.89 Other specified diseases of spinal cord; M54.12 Radiculopathy, cervical region; G89.18 Other acute postprocedural pain; F32.9 Major depressive disorder, single episode, unspecified; E66.9 Obesity, unspecified; Z68.30 Body mass index [BMI] 30.0-30.9, adult; F41.9 Anxiety disorder, unspecified; M25.562 Pain in left knee; M25.561 Pain in right knee; M25.512 Pain in left shoulder; M25.511 Pain in right shoulder
CPT/HCPCS: 36415; 71046; 72040; 76001; 80053; 81001; 83735; 84100; 85025; 85610; 85730; 86850; 86900; 86901; 86920; 87081; 87086; 94003; 94150; C9399; J2250; J2405; J2710